=== PATIENT | male | born 1960 ===

== ENCOUNTER 2024-12-27 11:33 | Emergency (ER) | payer MEDICARE ==
[2024-12-27 11:48] VITALS: TEMP 97.4
--- NOTE | 2024-12-27 12:01 | ED ---
Arrhythmia/Palpitations HPI - General Source: patient, RN notes reviewed Mode of arrival: ambulatory Limitations: no limitations <Chacha Ziegler - Last Filed: 12/27/24 12:00> - General Source: patient, family, RN notes reviewed Mode of arrival: ambulatory Limitations: no limitations <Jeramie Piedra - Last Filed: 12/27/24 15:28> - General Chief Complaint: Arrhythmia/Palpitations Stated Complaint: rapid heartbeat Time Seen by Provider: 12/27/24 11:50 - History of Present Illness Initial Comments: Quick [id number] male history of A-fib on Eliquis presenting to the emergency department with heart palpitations. Patient states that he took Flonase for the first time yesterday evening who is concerned that he may have had an allergic reaction to this as he began to experience recurrent palpitati ons approximate 1 hour after use of medication. States that at the time he had associated chest pressure and difficulty breathing. Currently patient is denying difficulty breathing, chest pressure or pain or heart palpitations. (Chacha Ziegler) Patient is a 64-year-old male present to the emergency department with concerns with palpitations. Patient does have history of A-fib with similar symptoms previously. Patient states this occurred while using his Flonase. Heart rate was 120 at home. Patient has had complaint of palpitations with minimal tightness that he associates to the palpitations. Patient states symptoms have resolved and he is currently symptom-free. Patient states he has history of cardioversion x 2 as well as ablation. Patient is still on Eliquis (Jeramie Piedra) - Related Data Allergies Allergy/AdvReac Type Severity Reaction Status Date / Time amoxicillin [From Amoxil] Allergy Rash/Hives Verified 12/27/24 11:48 Review of Systems ROS Other: All systems not noted in ROS Statement are negative. <Chacha Ziegler - Last Filed: 12/27/24 12:00> ROS Other: All systems not noted in ROS Statement are negative. Constitutional: Denies: fever Eyes: Denies: eye pain ENT: Denies: ear pain Respiratory: Denies: cough, dyspnea Cardiovascular: Reports: as per HPI, palpitations Endocrine: Denies: fatigue Gastrointestinal: Denies: abdominal pain Musculoskeletal: Denies: back pain <Jeramie Piedra - Last Filed: 12/27/24 15:28> ROS Statement: Those systems with pertinent positive or pertinent negative responses have been documented in the HPI. Past Medical History Past Medical History: Atrial Fibrillation, Hyperlipidemia, Hypertension, Osteoarthritis (OA), Renal Disease Additional Past Surgical History / Comment(s): cardiac ablation for afib Smoking Status: Never smoker Past Alcohol Use History: None Reported Past Drug Use History: None Reported <Chacha Ziegler - Last Filed: 12/27/24 12:00> General Exam Limitations: no limitations <Chacha Ziegler - Last Filed: 12/27/24 12:00> Limitations: no limitations General appearance: alert, in no apparent distress Head exam: Present: normocephalic Eye exam: Present: normal appearance Neck exam: Present: normal inspection Respiratory exam: Present: normal lung sounds bilaterally Cardiovascular Exam: Present: regular rate, irregular rhythm Expanded Peripheral pulses: 2+: Radial (R), Radial (L), Posterior Tibialis (R), Posterior Tibialis (L) GI/Abdominal exam: Present: soft. Absent: tenderness Extremities exam: Present: normal inspection. Absent: pedal edema, calf tenderness Neurological exam: Present: alert Psychiatric exam: Present: normal affect, normal mood Skin exam: Present: normal color <Jeramie Piedra - Last Filed: 12/27/24 15:28> - General Exam Comments Initial Comments: Visual Physical Exam Vital signs reviewed General: Well-appearing, nontoxic, no acute distress. Head: Normocephalic, atraumatic Eyes: PERRLA, EOMI ENT: Airway patent Chest: Nonlabored breathing Skin: No visual rash, normal skin tone Neuro: Alert and oriented 3 Musculoskeletal: No gross abnormalities (Chacha Ziegler) Course Vital Signs 12/27/24 11:42 Temperature 97.4 F L Pulse Rate 84 Respiratory 16 Rate Blood Pressure 133/73 O2 Sat by Pulse 98 Oximetry EKG Findings - EKG Results: EKG: interpreted by ERMD (Atrial flutter with a rate of 106. Left axis. Low QRS voltage.), normal ST/T <Jeramie Piedra - Last Filed: 12/27/24 15:28> Medical Decision Making <Chacha Ziegler - Last Filed: 12/27/24 12:00> - Lab Data Result diagrams: 12/27/24 12:03 12/27/24 12:03 <Pidera,Jeramie - Last Filed: 12/27/24 15:28> - Medical Decision Making I completed the quick note portion of this chart signed Chacha Ziegler PA-C (Chacha Ziegler) Was pt. sent in by a medical professional or institution ([facility], HYDROLOGY PROFESSOR, urgent care, hospital, or fdc...) When possible be specific @ -No Did you speak to anyone other than the patient for history (EMS, parent, family, police, friend...)? What history was obtained from this source @ - is present and helps provide additional history including patient's history of previous ablation Did you review nursing and triage notes (agree or disagree)? Why? @ -I reviewed and agree with nursing and triage notes Were old charts reviewed (outside hosp., previous admission, EMS record, old EKG, old radiological studies, urgent care reports/EKG's, fdc records)? Report findings @ -No old charts were reviewed Differential Diagnosis (chest pain, altered mental status, abdominal pain women, abdominal pain men, vaginal bleeding, weakness, fever, dyspnea, syncope, headache, dizziness, GI bleed, back pain, seizure, CVA, palpatations, mental health, musculoskeletal)? @ -Differential Palpitations Ventricular arrhythmias, atrial arrhythmias, myocardial infarction, anemia, thyrotoxicosis, electrolyte imbalance, hypokalemia, pulmonary embolism, pulmonary disease, drugs, alcohol, anxiety, stress.... This is not meant to be an all-inclusive list. EKG interpreted by me (3pts min.). @ -As above X-rays interpreted by me (1pt min.). @ -Chest x-ray shows no acute process CT interpreted by me (1pt min.). @ -None done U/S interpreted by me (1pt. min.). @ -None done What testing was considered but not performed or refused? (CT, X-rays, U/S, labs)? Why? @ -None What meds were considered but not given or refused? Why? @ -None Did you discuss the management of the patient with other professionals (professionals i.e. [facility], HYDROLOGY PROFESSOR, lab, RT, psych nurse, social media marketing specialist, admiralty lawyer, teacher, commanding officer motorized squad, rn case management)? Give summary @ -No Was smoking cessation discussed for >3mins.? @ -No Was critical care preformed (if so, how long)? @ -No Were there social determinants of health that impacted care today? How? (Homelessness, low income, unemployed, alcoholism, drug addiction, transportation, low edu. Level, literacy, decrease access to med. care, usp, rehab)? @ -No Was there de-escalation of care discussed even if they declined (Discuss DNR or withdrawal of care, Hospice)? DNR status @ -Patient presents with atrial flutter/fib. Patient has history. Discussion regarding hospitalization however patient and do not feel this is necessary. They refuses and would like to be discharged and follow-up with her own doctor. Patient is currently on Eliquis and heart rate is not significantly elevated. Evaluation otherwise is unremarkable. What co-morbidities impacted this encounter? (DM, HTN, Smoking, COPD, CAD, Cancer, CVA, ARF, Chemo, Hep., AIDS, mental health diagnosis, sleep apnea, morb id obesity)? @ -History of atrial fibrillation Was patient admitted / discharged? Hospital course, mention meds given and route, prescriptions, significant lab abnormalities, going to OR and other pe rtinent info. @ -See above, patient presents with palpitations. Discomfort was mild and patient associates this to palpitations. Evaluation other than atrial flutter on EKG unremarkable. Patient is already on Eliquis. Patient will be discharged and follow-up with his personal foundation maker. Patient will also be provided local foundation maker. Undiagnosed new problem with uncertain prognosis? @ -No Drug Therapy requiring intensive monitoring for toxicity (Heparin, Nitro, Insulin, Cardizem)? @ -No Were any procedures done? @ -No Diagnosis/symptom? @ -Atrial flutter Acute, or Chronic, or Acute on Chronic? @ -Acute Uncomplicated (without systemic symptoms) or Complicated (systemic symptoms)? @ -Default Side effects of treatment? @ -No Exacerbation, Progression, or Severe Exacerbation? @ -No Poses a threat to life or bodily function? How? (Chest pain, USA, MD, pneumonia, PE, COPD, DKA, ARF, appy, cholecystitis, CVA, Diverticulitis, Homicidal, Suicidal, threat to staff... and all critical care pts) @ -No (Jeramie Piedra) - Lab Data Lab Results 12/27/24 12/27/2425 Range/Units 12:03 12:03 12:03 WBC 7.5 (3.8-10.6) k/uL RBC 5.76 (4.30-5.90) m/uL Hgb 17.6 H (13.0-17.5) gm/dL Hct 51.7 (39.0-53.0) % MCV 89.8 (80.0-100.0) fL MCH 30.5 (25.0-35.0) pg MCHC 34.0 (31.0-37.0) g/dL RDW 13.3 (11.5-15.5) % Plt Count 281 (150-450) k/uL MPV 7.6 Neutrophils % 65 % Lymphocytes % 24 % Monocytes % 6 % Eosinophils % 2 % Basophils % 1 % Neutrophils # 4.9 (1.3-7.7) k/uL Lymphocytes # 1.8 (1.0-4.8) k/uL Monocytes # 0.5 (0-1.0) k/uL Eosinophils # 0.1 (0-0.7) k/uL Basophils # 0.0 (0-0.2) k/uL PT 11.9 (10.0-12.5) sec INR 1.1 (<1.2) APTT 26.0 (22.0-30.0) sec Sodium 140 (137-145) mmol/L Potassium 4.0 (3.5-5.1) mmol/L Chloride 105 (98-107) mmol/L Carbon Dioxide 23 (22-30) mmol/L Anion Gap 12 mmol/L BUN 17 (9-20) mg/dL Creatinine 1.29 H (0.66-1.25) mg/dL Est GFR (CKD-EPI)AfAm 67 (>60 ml/min/1.73 sqM) Est GFR (CKD-EPI)NonAf 58 (>60 ml/min/1.73 sqM) Glucose 121 H (74-99) mg/dL Calcium 10.1 (8.4-10.2) mg/dL Magnesium 2.2 (1.6-2.3) mg/dL Total Bilirubin 1.2 (0.2-1.3) mg/dL AST 29 (17-59) U/L ALT 31 (4-49) U/L Alkaline Phosphatase 71 (38-126) U/L Troponin I (0.000-0.034) ng/mL Total Protein 8.1 (6.3-8.2) g/dL Albumin 4.9 (3.5-5.0) g/dL TSH 1.420 (0.465-4.680) mIU/L /15/ Range/Units 12:03 WBC (3.8-10.6) k/uL RBC (4.30-5.90) m/uL Hgb (13.0-17.5) gm/dL Hct (39.0-53.0) % MCV (80.0-100.0) fL MCH (25.0-35.0) pg MCHC (31.0-37.0) g/dL RDW (11.5-15.5) % Plt Count (150-450) k/uL MPV Neutrophils % % Lymphocytes % % Monocytes % % Eosinophils % % Basophils % % Neutrophils # (1.3-7.7) k/uL Lymphocytes # (1.0-4.8) k/uL Monocytes # (0-1.0) k/uL Eosinophils # (0-0.7) k/uL Basophils # (0-0.2) k/uL PT (10.0-12.5) sec INR (<1.2) APTT (22.0-30.0) sec Sodium (137-145) mmol/L Potassium (3.5-5.1) mmol/L Chloride (98-107) mmol/L Carbon Dioxide (22-30) mmol/L Anion Gap mmol/L BUN (9-20) mg/dL Creatinine (0.66-1.25) mg/dL Est GFR (CKD-EPI)AfAm (>60 ml/min/1.73 sqM) Est GFR (CKD-EPI)NonAf (>60 ml/min/1.73 sqM) Glucose (74-99) mg/dL Calcium (8.4-10.2) mg/dL Magnesium (1.6-2.3) mg/dL Total Bilirubin (0.2-1.3) mg/dL AST (17-59) U/L ALT (4-49) U/L Alkaline Phosphatase (38-126) U/L Troponin I <0.012 (0.000-0.034) ng/mL Total Protein (6.3-8.2) g/dL Albumin (3.5-5.0) g/dL TSH (0.465-4.680) mIU/L Disposition <KarlieChacha - Last Filed: 12/27/24 12:00> Is patient prescribed a controlled substance at d/c from ED?: No Time of Disposition: 15:27 <Jeramie Piedra - Last Filed: 12/27/24 15:28> Clinical Impression: Atrial flutter Disposition: HOME SELF-CARE Condition: Stable Instructions (If sedation given, give patient instructions): Atrial Flutter (ED) Additional Instructions: Please do follow-up with your primary care physician beginning the week. Please also follow-up with your foundation maker being the week. Local physician numbers provided. Return for increased heart rate, chest discomfort, difficulty breathing, worsening or changing symptoms or any other concerns. Continue Eliquis. Referrals: Nonstaff,Physician [Primary Care Provider] - 1-2 days Tahir York DO [STAFF PHYSICIAN] - 1-2 days Kishan Ruvalcaba MD [STAFF PHYSICIAN] - 1-2 days Forms: Area PCPs
[2024-12-27 12:17] LABS: Basophils % (A) 1 %; Eosinophils # (A) 0.1 k/uL (0-0.7); Eosinophils % (A) 2 %; HCT 51.7 % (39.0-53.0); HGB 17.6 gm/dL (13.0-17.5); Lymphocytes # (A) 1.8 k/uL (1.0-4.8); Lymphocytes % (A) 24 %; MCH 30.5 pg (25.0-35.0); MCV 89.8 fL (80.0-100.0); Mean Platelet Volume 7.6; Monocytes # (A) 0.5 k/uL (0-1.0); Monocytes % (A) 6 %; Neutrophils # (A) 4.9 k/uL (1.3-7.7); Neutrophils % (A) 65 %; Platelet Count 281 k/uL (150-450); RBC 5.76 m/uL (4.30-5.90); RDW 13.3 % (11.5-15.5); WBC 7.5 k/uL (3.8-10.6)
--- NOTE | 2024-12-27 12:20 | XR ---
EXAMINATION TYPE: XR chest 2V DATE OF EXAM: 12/27/2024 12:16 PM COMPARISON: None TECHNIQUE: XR chest 2V Frontal and lateral views of the chest. CLINICAL INDICATION:Male, 64 years old with history of dysrhythmia; FINDINGS: Lungs/Pleura: There is no evidence of pleural effusion, focal consolidation, or pneumothorax. Pulmonary vascularity: Unremarkable. Heart/mediastinum: Cardiomediastinal silhouette is unremarkable. Musculoskeletal: Multiple level degenerative disc disease changes seen throughout the spine. IMPRESSION: No acute cardiopulmonary disease/process. [facility], , 12/27/2024 12:18 PM
[2024-12-27 12:25] LABS: INR 1.1 (<1.2); Prothrombin Time 11.9 sec (10.0-12.5)
[2024-12-27 12:30] LABS: ALT 31 U/L (4-49); African American GFR (CKD) 67 (>60 ml/min/1.73 sqM); Albumin 4.9 g/dL (3.5-5.0); Anion Gap 12 mmol/L; Blood Urea Nitrogen 17 mg/dL (9-20); Calcium 10.1 mg/dL (8.4-10.2); Carbon Dioxide 23 mmol/L (22-30); Chloride 105 mmol/L (98-107); Glucose 121 mg/dL (74-99); Non-African American GFR(CKD) 58 (>60 ml/min/1.73 sqM); Sodium 140 mmol/L (137-145); Total Bilirubin 1.2 mg/dL (0.2-1.3); Total Protein 8.1 g/dL (6.3-8.2)
[2024-12-27 12:44] LABS: AST 29 U/L (17-59); Alkaline Phosphatase 71 U/L (38-126); Magnesium 2.2 mg/dL (1.6-2.3)
[2024-12-27 15:44] VITALS: BP 134/97; PULSE 69; RESP 18
== END 2024-12-27 15:46 | disposition home or self-care (01) ==
LOC: EC 11:33
DX: I48.92 Unspecified atrial flutter (principal); I48.91 Unspecified atrial fibrillation; Z79.01 Long term (current) use of anticoagulants; Z88.0 Allergy status to penicillin
CPT/HCPCS: 36415; 71046; 80053; 83735; 84443; 84484; 85025; 85610; 85730; 93005; 99285